=== PATIENT | female | born 1960 | race Caucasian/White ===

== ENCOUNTER → 2016-08-13 | Outpatient (CLI) | payer OTHER ==
[~2016-08-13] MED LIST: ALEN70TA2 PO; CHOL100027 PO; CONJ0.453 PO; MULTTAB58 PO; OXYC-57 PO; VIACTIV CALCIUM PO
--- NOTE | 2016-08-13 15:58 | MAMMOGRAPHY REPORT ---
BILATERAL DIGITAL SCREENING MAMMOGRAM TOMOSYNTHESIS WITH CAD: 08/13/2016 CLINICAL HISTORY: Routine screening. Patient has no complaints. TECHNIQUE: Breast tomosynthesis in addition to standard 2D mammography was performed. Current study was also evaluated with a Computer Aided Detection (CAD) system. COMPARISON: Comparison is made to exams dated: 09/12/2014 mammogram, 09/05/2013 mammogram, 08/30/2012 mammogram, 08/25/2011 mammogram, 08/20/2010 mammogram, and 08/13/2009 mammogram - [facility] enter. BREAST COMPOSITION: There are scattered areas of fibroglandular density in both breasts. FINDINGS: The parenchymal pattern is similar to prior exams. No suspicious mass, architectural dist ortion or cluster of suspicious microcalcifications is seen. IMPRESSION: ACR BI-RADS CATEGORY 1: NEGATIVE There is no mammographic evidence of malignancy. A 1 year screening mammogram is recommended. The p atient will receive written notification of the results. Approximately 10% of breast cancers are not detected with mammography. A negative mammographic repor t should not delay biopsy if a clinically suggestive mass is present. Alissa Kwon M.D. ay/:08/13/2016 13:42:10 [place] Laborer: Lucille SANTANA(Rudi)(Andrew), [facility] letter sent: Normal 1/2 BI-RADS Code: ACR BI-RADS Category 1: Negative
== END | disposition home or self-care (01) ==
LOC: C.MAMM 08:58
PROVIDERS: ATTEND Obstetrics & Gynecology
DX: Z12.31 Encounter for screening mammogram for malignant neoplasm of breast (principal)

== ENCOUNTER → 2016-11-17 | Outpatient (CLI) | payer OTHER ==
[~2016-11-17] MED LIST changes: -OXYC-57 PO
== END | disposition home or self-care (01) ==
LOC: C.PAPS 10:29
PROVIDERS: ATTEND Obstetrics & Gynecology
DX: Z12.4 Encounter for screening for malignant neoplasm of cervix (principal)

== ENCOUNTER → 2017-05-27 | Outpatient (CLI) | payer OTHER | END | disposition home or self-care (01) | LOC: C.RDSM 15:05 | PROVIDERS: ATTEND Physical Medicine & Rehabilitation Sports Medicine | DX: M65.30 Trigger finger, unspecified finger (principal) ==

== ENCOUNTER → 2017-06-18 | Outpatient (CLI) | payer OTHER | END | disposition home or self-care (01) | LOC: C.RDSM 13:48 | PROVIDERS: ATTEND Orthopaedic Surgery | DX: M79.641 Pain in right hand (principal); M79.642 Pain in left hand; M79.645 Pain in left finger(s) ==

== ENCOUNTER → 2017-10-26 | Outpatient (CLI) | payer OTHER ==
--- NOTE | 2017-10-26 15:26 | MAMMOGRAPHY REPORT ---
BILATERAL DIGITAL SCREENING MAMMOGRAM TOMOSYNTHESIS WITH CAD: 10/26/2017 CLINICAL HISTORY: Routine screening. Patient has no complaints. TECHNIQUE: Breast tomosynthesis in addition to standard 2D mammography was performed. Current study was also evaluated with a Computer Aided Detection (CAD) system. COMPARISON: Comparison is made to exams dated: 08/13/2016 mammogram, 09/12/2014 mammogram, 02/23/2014 ma mmogram, 09/05/2013 mammogram, 08/30/2012 mammogram, and 08/25/2011 mammogram - [facility] nter. BREAST COMPOSITION: There are scattered areas of fibroglandular density in both breasts. FINDINGS: The parenchymal pattern is unchanged. No developing mass, architectural distortion or clus ter of suspicious microcalcifications is seen in either breast. IMPRESSION: ACR BI-RADS CATEGORY 2: BENIGN There is no mammographic evidence of malignancy. A 1 year screening mammogram is recommended. The pa tient will receive written notification of the results. Approximately 10% of breast cancers are not detected with mammography. A negative mammographic report should not delay biopsy if a clinically suggestive mass is present. Alissa Kwon M.D. ay/:10/26/2017 15:16:53 Mortgage Loan Officer: Leigha SANTANA(Rudi)(Andrew)([place]), [facility] letter sent: Normal 1/2 BI-RADS Code: ACR BI-RADS Category 2: Benign
== END | disposition home or self-care (01) ==
LOC: C.MAMM 14:42
PROVIDERS: ATTEND Obstetrics & Gynecology
DX: Z12.31 Encounter for screening mammogram for malignant neoplasm of breast (principal)

== ENCOUNTER 2023-02-17 10:50 | Observation (INO) ==
--- NOTE | 2023-01-12 10:46 | PAT Medication Instructions ---
Medication Instructions Date of Service January 12, 2023 Home Medications Medication Instructions Recorded Deborah Burr #1 ea 12/11/22 calcium carbonate 250 mg-vitamin D3 3.125 mcg (125 unit) tablet 1 tab PO BID multivitamin 1 cap PO QAM borage seed oil 1,200 mg capsule 1,300 mg PO DAILY amino acids (Amino Acid capsule) 4 cap PO QAM krill oil 500 mg capsule 500 mg PO QAM turmeric root extract 500 mg capsule (Curcuplex-95) 500 mg PO QAM STOP taking 2 weeks before surgery (or as soon as possible if surgery is within 2 weeks) borage seed oil 1,200 mg capsule 1,300 mg PO DAILY amino acids (Amino Acid capsule) 4 cap PO QAM krill oil 500 mg capsule 500 mg PO QAM turmeric root extract 500 mg capsule (Curcuplex-95) 500 mg PO QAM DO NOT take the morning of surgery multivitamin 1 cap PO QAM calcium carbonate 250 mg-vitamin D3 3.125 mcg (125 unit) tablet 1 tab PO BID Take evening before surgery calcium carbonate 250 mg-vitamin D3 3.125 mcg (125 unit) tablet 1 tab PO BID Other Notes NOTHING TO EAT OR DRINK AFTER MIDNIGHT. If you have any questions please call us at [phone] or [phone] or [phone] or [phone]
--- NOTE | 2023-01-19 14:49 | Anesthesiology Consultation ---
Date of Service January 19, 2023 Assessment & Plan (1) Encounter for pre-operative examination: - awaiting updated echocardiogram. - Cardiac murmur: diastolic on exam, pt reports echo completed "many yrs ago" demonstrated mild regurgitation, unsure of which valve and she believes record is no longer available. Case discussed with Dr. Hicks in detail and he advised updating echocardiogram prior to surgery given plan for neuraxial anesthesia. Pt made aware, denied questions or concerns. Chart Review Chart Review: Pending: Refer to Additional Notes / Consult section and Patient seen in Pre Admission Testing Teaching & Discussion Pre-Anesthesia Teaching/Discussion Notes: Instructed NPO after midnight before surgery, except medications with 15 cc of water. Medication instructions provided according to the PAT guidelines. History Surgery Operation Date: 02/17/23 13:00 Proposed Procedures p Right Total Knee Arthroplasty - Jatinder Agee MD Height/Weight Height: 5 ft 6 in Weight: 79.6 kg Allergies Allergy/AdvReac Type Severity Reaction Status Date / Time No Known Allergies Allergy Unknown Verified 01/12/23 08:06 Medications Home Medications Medication Instructions Recorded Confirmed Last Taken calcium carbonate 250 mg-vitamin 1 tab PO BID 02/22/19 01/12/23 05/16/19 D3 3.125 mcg (125 unit) tablet multivitamin 1 cap PO QAM 02/22/19 01/12/23 05/16/19 borage seed oil 1,200 mg capsule 1,300 mg PO DAILY 10/02/22 01/12/23 Unknown Wheeled Walker #1 ea 12/11/22 12/11/22 Unknown amino acids (Amino Acid capsule) 4 cap PO QAM 01/12/23 01/12/23 Unknown krill oil 500 mg capsule 500 mg PO QAM 01/12/23 01/12/23 Unknown turmeric root extract 500 mg 500 mg PO QAM 01/12/23 01/12/23 Unknown capsule (Curcuplex-95) Additional Notes: Pt advised that surgeon advised supplements can be continued throughout brianna- operative recommendations. Past Medical History Medical History (Updated 01/19/23 @ 15:12 by Michelle Malave PA-C) Cardiac murmur YRS AGO; f/u PCP GERD (gastroesophageal reflux disease) rare with spicy foods, stable per pt Patient denies h/o stroke, seizures, heart attack, heart failure, DM, HTN, blood clots or blood transfusions. Exercise / Class Metabolic Activity II 4-5 Yardwork/Stairs/Walk up hill (denies chest discomfort or shortness of breath with 1 FOS, patient swims daily) Past Surgical History Surgical History H/O section History of colonoscopy History of dental surgery History of endometrial ablation Hx of thumb surgery BILAT > JOINTS REPLACED; carpal tunnel sx done one wrist and trigger finger release on opposite hand>all done during thumb surgery Nausea and vomiting after administration of anesthetic agent Status post blepharoplasty of both eyes (05/17/19) 4 lid Past Anesthesia History No Hx of Anesthesia Complications and No Family Hx of Anesthesia Complications History of PONV No Hx of Motion Sickness and History of PONV (denies needing scop patch, states does well with IV pre-medication) Social History Smoking Status: Never smoker Do You Dip or Chew Tobacco: No Hx Alcohol Use: Yes Alcohol type: wine alcohol intake frequency: a few times a week Hx Substance Use: No substance use type: does not use Review of Systems Patient denies chest pain, shortness of breath, dyspnea on exertion, snoring, witnessed apneas, fever, chills, cough, wheezing, or palpitations. Physical Exam Vital Signs Vitals BP 140/87 P 75 TEMP 98.6 SP02 97% on RA RESP 17 Physical Patient resting comfortably in chair in NAD, alert and oriented, responding appropriately throughout visit Full cervical extension range of motion without pain TMD 3.5 finger breadths Mallampati Score 3 Dentition: right front upper implant, denies chipped or loose teeth, caps/crowns, or bridges Lungs: normal respiratory effort. Good air movement, clear throughout to auscultation, no adventitious breath sounds Cardiac: regular rate and rhythm, 2/6 diastolic murmur Carotid arteries: negative bruit bilat Lab Results Anesthesia Preop Results Results Anesthesia Widget: WBC 5.47 K/ul (4.8-10.8) 01/19/23 Hgb 14.4 g/dl (12.0-16.0) 01/19/23 Hct 42.1 % (37.0-47.0) 01/19/23 Plt 296 K/uL (130-400) 01/19/23 Na 138 mmol/L (136-145) 01/19/23 K 3.8 mmol/L (3.5-5.1) 01/19/23 Cl 104 mmol/L (98-107) 01/19/23 CO2 27 mmol/L (21-32) 01/19/23 BUN 17 mg/dl (6-23) 01/19/23 Creat 0.84 mg/dl (0.6-1.2) 01/19/23 Glucose Level 95 mg/dl (70-99(Fasting)) 01/19/23 PT 11.0 Seconds (9.0-12.0) 01/19/23 PTT 26.5 Seconds (21.0-31.0) 01/19/23 INR 1.0 (0.9-1.1) 01/19/23 Blood Type AB Positive 01/19/23 Antibody Screen NEGATIVE 01/19/23 Testing Electrocardiogram Date: 01/20/23 NSR, rate 73 bpm Chest X-Ray Date: 01/20/23 No acute chest disease
--- NOTE | 2023-02-14 10:08 | History & Physical Report ---
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 She failed conservative measures. She like to have her right knee fixed. Plan: Orgran taken to the operating of the right total knee replacement for the risk meant this procedure explained the patient include but not limited to DVT PE infection neurological and vascular bleeding palm pain limb range of motion stiffness fairly of symptoms incomplete relief of symptoms need for further surgery in the future. Patient understands and desires to proceed. Informed consent is obtained. She is hoping to stay in the hospital overnight. Will do therapy in the morning and hopefully discharge date postop day 1 if she is doing well. (2) Venous insufficiency: History of Present Illness Chief Complaint: . Bilateral knee pain and discomfort right side greater than left. Primary Care Provider: Arianna Almeida MD . Patient is a 62-year-old female who presents for follow-up and surgical treatment of her knees. 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 She had a long history of knee problems. She been treated conservatively which is become less successful over time. The last shot that helped her for about a week and a half and that is about it. She is resorted to swimming for exercise as she cannot walk long distances. She has pain with any type of prolonged standing. She now elected proceed with surgical management. Once again, the right knee is bothering him more than the left. Allergies Allergy/AdvReac Type Severity Reaction Status Date / Time No Known Allergies Allergy Unknown Verified 01/12/23 08:06 Home Medications Medication Instructions Recorded Confirmed Type calcium carbonate 250 mg-vitamin 1 tab PO BID 02/22/19 01/12/23 History D3 3.125 mcg (125 unit) tablet multivitamin 1 cap PO QAM 02/22/19 01/12/23 History borage seed oil 1,200 mg capsule 1,300 mg PO DAILY 10/02/22 01/12/23 History Wheeled Walker #1 ea 12/11/22 12/11/22 Rx amino acids (Amino Acid capsule) 4 cap PO QAM 01/12/23 01/12/23 History krill oil 500 mg capsule 500 mg PO QAM 01/12/23 01/12/23 History turmeric root extract 500 mg 500 mg PO QAM 01/12/23 01/12/23 History capsule (Curcuplex-95) Past Med/Surg History Medical History Cardiac murmur YRS AGO; f/u PCP GERD (gastroesophageal reflux disease) rare with spicy foods, stable per pt Surgical History H/O section History of colonoscopy History of dental surgery History of endometrial ablation Hx of thumb surgery BILAT > JOINTS REPLACED; carpal tunnel sx done one wrist and trigger finger release on opposite hand>all done during thumb surgery Nausea and vomiting after administration of anesthetic agent Status post blepharoplasty of both eyes (05/17/19) 4 lid Social History Smoking Status: Never smoker Second Hand Exposure: No; Do You Dip or Chew Tobacco: No; Tobacco Cessation Education Requested by Patient: No Hx Alcohol Use: Yes Alcohol type: wine Hx Substance Use: No Preferred Language: Occitan Communication Ability: Effective Splicing Machine Operator Required: No Beliefs That Will Affect Care: None Current Living Situation: Spouse and Family current occupational status: employed Other Information That Helps Us Care for You: No Feels Safe at Home: Yes Safety Concerns: Feels Safe At This Time Assistive Devices: None Review of Systems All systems reviewed & are unremarkable except as noted in HPI & below. Physical Exam . Physical examination of the knees reveal a patient who ambulates independently. She got varus alignment to both knees. That when she weightbears she does have a bit of varus thrust. She got bony perjury medially. Small knee effusion. Range of motion is pretty symmetric with about 510 degrees of flexion contractu re in both knees and bends to about 105 to 110 degrees. No pain with hip motion on either side. Negative straight leg raise. Constitutional WD/WN, vitals as above Respiratory normal respiratory effort, lungs clear to auscultation Cardiovascular RRR, no murmur, no edema Gastrointestinal (Abdomen) normal bowel sounds, soft, nontender, no hepatosplenomegaly Results & Data Results & Data Laboratory Results . Diagnostic Findings . X-rays of both knees reveal advanced bilateral knee DJD. That she has complete loss of the medial joint space. Is got osteophytes in the medial compartment primarily. She had subchondral sclerosis bilaterally. PG Care Time/CCT Total # of Minutes Spent Total Time Spent with Patient: Total time spent is greater than 50% in coordination of care (as documented) at patient's floor/unit and/or counseling patient: Coding Level of Care Code None Diagnoses Degenerative arthritis of knee, bilateral M17.0 Venous insufficiency I87.2
[~2023-02-17 10:50] MED LIST changes: +ACETAMINOPHEN 500 MG TAB PO SCH; -ALEN70TA2 PO; +BUPIVACAINE 0.25% PF 30 ML VIAL ONE; +BUPIVACAINE 0.5 % 5 MG/1 ML PF 10ML VIAL ONE; +BUPIVACAINE LIPOSOME/PF 266 MG, BUPIVACAINE/EPINEPHRINE 50 ML, SODIUM CHLORIDE 0.9% PF ... INFIL SCH; -CHOL100027 PO; -CONJ0.453 PO; +CeleBREX 200 MG CAP PO SCH; +FAMOTIDINE 20 MG TAB PO SCH; +LR 15ML/HR IV SCH; +LR 60ML/HR IV SCH; +METOCLOPRAMIDE HCL 10 MG TABLET PO SCH; -MULTTAB58 PO; +Scopolamine 1 MG TDSY TD SCH; +TRANEXAMIC ACID 1,000 MG **IV Intra-op IV SCH; -VIACTIV CALCIUM PO; +ceFAZolin 2000MG 2,000 MG/15 ML SYR IV SCH; +dexAMETHasone**PF** 10 MG/ML VIAL IV SCH
--- NOTE | 2023-02-17 11:17 | History & Physical Bridge Note ---
Date of Service February 17, 2023 History & Physical Bridge Note I have examined the patient, reviewed the History & Physical and in the interval since the performance of the History & Physical I have noted the following changes of clinical significance: no changes noted
[2023-02-17] MEDS ORDERED: ONDANSETRON INJ 2 MG/ML 2 ML VIAL IV PRN ×2 (12:07→16:30)
[2023-02-17] MEDS ORDERED: ATROPINE SULFATE 0.1 MG/ML 10ML SYR IV PRN (12:07)
[2023-02-17] MEDS ORDERED: fentaNYL citrate PF 100 MCG/2 ML VIAL IV PRN (12:07)
[2023-02-17] MEDS ORDERED: ePHEDrine sulfate 50 MG/ML AMP IV PRN (12:07)
[2023-02-17] MEDS ORDERED: LIDOCAINE 2% 2 ML VIAL/AMP(20MG/ML) INFIL ONE (12:08)
[2023-02-17] MEDS ORDERED: PROPOFOL IV EMULSION 10 MG/ML 20 ML VIAL IV ONE (12:08)
[2023-02-17] MEDS ORDERED: ONDANSETRON INJ 2 MG/ML 2 ML VIAL ONE (12:08)
[2023-02-17] MEDS ORDERED: GLYCOPYRROLATE 0.2 MG/ML VIAL ONE (12:08)
[2023-02-17] MEDS ORDERED: MIDAZOLAM HCL 1 MG/ML 2ML VIAL ONE (12:08)
[2023-02-17] MEDS ORDERED: SODIUM CHLORIDE 0.9% PF 50 ML VIAL ONE (12:22)
[2023-02-17] MEDS ORDERED: BUPIVACAINE LIPOSOME 1.3% 266 MG/20 ML VIAL ONE (12:22)
[2023-02-17] MEDS ORDERED: BUPIVACAINE/EPINEPHRINE 0.25% 1:200,000 30 ML VIAL ONE (12:22)
[2023-02-17] MEDS ORDERED: KETAMINE 50 MG/5 ML SYRINGE ONE (13:11)
--- NOTE | 2023-02-17 14:57 | Operative Report ---
PG Post Operative Report Pre & Post Diagnosis Operation Date: 02/17/23 12:30 Pre-Op Diagnosis: Right Knee Degenerative Joint Disease Post-Op Diagnosis: Right Knee Degenerative Joint Disease I identified the patient and participated in the time-out.: Yes Procedure Operation Date: 02/17/23 12:30 Actual Procedures p Right Total Knee Arthroplasty(Right) - Jatinder Agee MD Surgeon Jatinder Agee MD Technical Sales Manager Patrick Azar PA-C Estimated Blood Loss 50 Findings Consistent with Post-Op Diagnosis Operative findings were advanced right knee DJD. She had extensive grade 4 [id number] disease most severe in the medial compartment. Osteophytes primarily medially. She had a fixed varus deformity of the knee with a moderate joint effusion. Specimens Right knee sent for pathology Anesthesia Type Spinal MAC Complications none Disposition Accompanied Patient To Recovery: No Indications Patient is a 62-year-old female said a long history of bilateral knee pain discomfort right side greater than left. She been through extensive conservative treatment over the years which became less successful. X-rays show advanced bilateral knee DJD. The right side was bothering more than the left. She elected proceed with right total knee arthroplasty. Description of Procedure Operative implants consist of: 1. Biomet Vanguard size 70 right posterior stabilized femoral component. 2. Biomet size 71 tibial tray. 3. 10 mm posterior stabilized polyethylene insert. 4. 31 x 8 all poly patella. The patient was taken to the operating, identified, placed on the operating table supine position but all contact areas were appropriately padded. IV antibiotics arrived by the anesthesia team. A spinal anesthetic and abductor canal block had been provided in the holding area. Velasquez catheter was placed in sterile fashion. Right thigh tent was then placed in the right lower extremities then prepped and draped in usual sterile fashion. The right leg was elevated exsanguinated with use of an Esmarch and the turn was placed at 300 mmHg. An anterior approach to the right knee was then performed to longitudinal incision centered over the patella. Sharp dissection was carried through subcutaneous tissue down the extensor mechanism. A medial parapatellar arthrotomy incision was made. Some subperiosteal dissection was carried out medially. The fat pad was dissected from Neath patella tendon. The lateral patellofemoral ligament was released. Patella subluxated laterally and the knee was flexed. The osteophytes taken on distal femur. The ACL and PCL were then released from distal femur and the tibia subluxated anteriorly. External tibial alignment jig was then placed in the interface the tibia and adjusted 14 mm medially. Proximal tibial cut was made to move out a millimeter or 2 of bone from most deficient aspect medial tibial plateau. Tibia sized to a size 71. Attention drawn the femur. The distal femur was entered with a sharp drill. Intramedullary canal was suction. Right 5 degree valgus cutting guide was placed. Distal femoral cutting block was pinned in place. Distal femoral cut was made to take an additional 3 mm of bone off distal femur. The femur was then sized to a size 70. The AP cutting block was pinned parallel to the epicondylar axis which was 3 degrees of external rotation. Anterior cut, anterior chamfer, posterior cut, posterior chamfer cuts were made. The box cutting guide was placed in just slight lateral box cut was made. The knee was flexed. The remnants of the medial and lateral menisci were excised. The osteophytes taken off the posterior aspect of femur. A trial femoral component was placed. The tibial tray was pinned in maximum external rotation and the drill and stem punch were used to create defect in proximal tibia for the tibial tray. The knee was then trialed and the 10 mm insert fit most appropriately. Attention drawn the patella. The patella was cleaned of all soft tissues. Patella thickness measured 23 mm in thickness was cut down to 15. Was sized to a size 31 patella. The lug holes were drilled for 31 patella. The lateral osteophytes removed. Patella button was placed. Knee was taken through range of motion patella tracked nicely with no thumbs test. Attention drawn to placing the permanent components. Nupathe all trial components were removed. Bone plug was placed in the distal femur limit blood loss. Double batch Palacos G cement was mixed. Biomet Vanguard size 70 right posterior stabilized femoral component, size 71 tibial tray, a 10 mm posterior stabilized polyethylene insert, and a 31 x 8 all Paller patella then cemented in place. The knee was brought out into full extension till cement hardened. Final cement check was then performed. The pericapsular tissues were injected with total of 100 cc of combination of 20 cc of Exparel, 30 cc normal saline, 50 cc of quarter percent Marcaine with epinephrine. Patient did receive 1 g tranexamic acid. The tourniquet was then let down for final tourniquet time 53 minutes. Hemostasis assured use electrocautery. The wounds once again irrigated. The extensor mechanism then closed with c ombination 1 PDS suture #1 Vicryl suture in a [id number] fashion. Extensor mechanism checked found to be intact the subcutaneous tissues then closed with 2 Dexon suture in buried erupted fashion skin was closed skin francisca. Leg was then cleaned and dried and sterile dressed with Xeroform, 4 fours, sterile cast padding, Bjorn bandage were applied. Patient then transferred to the [facility] in stable condition. Patient tolerated procedure well and there were no complications. Patrick Azar, my physician materials assistant, was present for the entire procedure. His assistance was essential and required for appropriate patient positioning, prepping and draping, surgical exposure, performing the technical details of the operation, placement the implants, closure of the wound, and placement of the sterile bandage. I attest to the content of the Intraoperative Record and any orders documented therein. Any exceptions are noted below.
--- NOTE | 2023-02-17 15:34 | XRay Report ---
XR knee RT 1 or 2V routine HISTORY: 62 years-old Female Surgical Post Op right knee arthroplasty COMPARISON: 12/11/2022 TECHNIQUE: 2 views of the right knee FINDINGS: Total joint arthroplasty with patellar resurfacing. Anterior midline skin francisca are present along w ith expected postoperative soft tissue swelling with deep tissue air. No acute fracture, dislocation or unexpected opaque foreign body. IMPRESSION: Total joint arthroplasty with expected postoperative changes. ACT 112: Negative or not required by law. The above report was generated using voice recognition software. It may contain grammatical, syntax o r spelling errors. Electronically signed by: Hema Og M.D. 02/17/2023 3:32 PM
--- NOTE | 2023-02-17 16:09 | Anesthesiology Progress Note ---
Date of Service February 17, 2023 Anesthesia Post Procedure Vital Signs Vital Signs: Temp Pulse Pulse Resp BP Pulse Ox O2 Del Method 02/17/23 16:00 75 20 121/79 98 Room Air 02/17/23 15:50 77 15 121/75 99 Room Air 02/17/23 15:40 36.4 C L 69 16 121/70 96 Room Air 02/17/23 15:30 80 13 118/68 100 Room Air 02/17/23 15:20 75 18 109/69 93 Room Air 02/17/23 15:00 82 17 108/60 95 Room Air 02/17/23 15:10 79 18 106/64 96 Room Air 02/17/23 14:54 36.6 C 81 19 97/49 L 95 Room Air 02/17/23 11:21 36.8 C 75 20 131/80 98 Room Air Transfer of Care Handoff Completed per policy Notes Mental Status: alert / awake / arousable Patient Amnestic to Procedure: Yes Nausea / Vomiting: adequately controlled Pain: adequately controlled Airway Patency, RR, SpO2: stable & adequate BP & HR: stable & adequate Hydration State: stable & adequate Neuraxial Anesthesia: was administered and sensory block is resolving Anesthetic Complications: no major complications apparent and Pt Satisfied with anesthetic care
[2023-02-17] MEDS ORDERED: ALUMINUM/MAGNESIUM SUSP 30 ML UDC PO PRN (16:30)
[2023-02-17] MEDS ORDERED: METOCLOPRAMIDE HCL INJ 5 MG/ML 2 ML VIAL IV PRN (16:30)
[2023-02-17] MEDS ORDERED: bisacodyL 10 MG SUPP PR PRN (16:30)
[2023-02-17] MEDS ORDERED: NALOXONE HCL 0.4 MG/1 ML VIAL/CARP IV PRN (16:30)
[2023-02-17] MEDS ORDERED: SODIUM CHLORIDE 0.9% 1,000 ML IV SCH (16:30)
[2023-02-17] MEDS ORDERED: diphenhydrAMINE Capsule 25 MG CAP PO PRN (16:30)
[2023-02-17] MEDS ORDERED: MAGNESIUM HYDROXIDE SUSP 30 ML UDC PO PRN (16:30)
[2023-02-17] MEDS: Scopolamine CHECK PATCH PLACEMENT SCH ×2 (17:12→23:40)
[2023-02-17] MEDS: ASCORBIC ACID 500 MG TAB PO SCH (17:12)
[2023-02-17] MEDS: KETOROLAC 30 MG/ML VIAL IV SCH ×2 (17:13→23:40)
[2023-02-17] MEDS: oxyCODONE HCL IR 5 MG TAB (IMMEDIATE RELEASE) PO PRN (19:51)
[2023-02-17] MEDS: ACETAMINOPHEN 500 MG TAB PO SCH (19:52)
[2023-02-17] MEDS ORDERED: SENNA 8.6 MG TAB PO SCH ×2 (21:00)
[2023-02-17] MEDS ORDERED: TRANEXAMIC ACID / 0.7% NACL 1,000 MG/100 ML BAG IV SCH (21:00)
[2023-02-17] MEDS: CALCIUM 600MG + VIT D 400 IU TAB PO SCH (21:16)
[2023-02-17] MEDS: ASPIRIN 81 MG ECTAB PO SCH (21:16)
[2023-02-17] MEDS: DOCUSATE SODIUM 100 MG CAP PO SCH (21:17)
[2023-02-17] MEDS: ceFAZolin 1000MG 1,000 MG/7.5 ML SYR IV SCH (21:57)
[2023-02-17] MEDS: HYDROmorphone INJ 0.5 MG/0.5 ML SYR IV PRN (23:43)
[2023-02-18] MEDS: oxyCODONE HCL IR 5 MG TAB (IMMEDIATE RELEASE) PO PRN ×2 (03:51→11:32)
[2023-02-18] MEDS: ceFAZolin 1000MG 1,000 MG/7.5 ML SYR IV SCH (06:17)
[2023-02-18] MEDS: KETOROLAC 30 MG/ML VIAL IV SCH (06:22)
[2023-02-18 07:14] LABS: Hematocrit (blood only) 36.3 % (37.0-47.0); Hemoglobin 12.3 g/dl (12.0-16.0); Mean Corpuscular Hemoglobin 30.6 pg (25.0-34.0); Mean Corpuscular Hgb Conc 33.9 g/dL (32.0-36.0); Mean Corpuscular Volume 90.3 fL (80.0-100.0); Mean Platelet Volume 9.9 fL (9.4-12.4); Platelet Count 252 K/uL (130-400); RDW Coefficient of Variation 12.6 % (11.5-14.5); RDW Standard Deviation 41.5 fL (36.4-46.3); Red Blood Count 4.02 M/uL (4.20-5.40); White Blood Count 13.81 K/ul (4.8-10.8)
[2023-02-18] MEDS: CALCIUM 600MG + VIT D 400 IU TAB PO SCH (07:36)
[2023-02-18] MEDS: ACETAMINOPHEN 500 MG TAB PO SCH (07:36)
[2023-02-18] MEDS: Scopolamine CHECK PATCH PLACEMENT SCH (07:36)
[2023-02-18] MEDS: ASCORBIC ACID 500 MG TAB PO SCH (07:36)
[2023-02-18] MEDS: DOCUSATE SODIUM 100 MG CAP PO SCH (07:36)
[2023-02-18 07:38] LABS: BUN Creatinine Ratio 14.3 (10-20); Creatinine Clr Calc Pharmacy 67.1 ml/min; Est GFR (African American) 77.8 ml/min; Est GFR (Non-African American) 67.1 ml/min; Potassium 4.3 mmol/L (3.5-5.1)
[2023-02-18] MEDS ORDERED: dexAMETHasone 10 MG in SYRINGE 0 ML IV SCH (08:00)
[2023-02-18] MEDS: HYDROmorphone INJ 0.5 MG/0.5 ML SYR IV PRN (08:37)
[2023-02-18] MEDS ORDERED: [UNRECOGNIZED DRUG - OTHER] PO SCH (09:00)
[2023-02-18] MEDS ORDERED: NON-FORMULARY MEDICATION (Amino Acids [Amino Acid] Capsule) PO SCH (09:00)
[2023-02-18] MEDS ORDERED: NON-FORMULARY MEDICATION (Multivitamin capsule) PO SCH (09:00)
[2023-02-18] MEDS ORDERED: MULTIVITAMIN TAB PO SCH (09:00)
[2023-02-18] MEDS ORDERED: TURMERIC ROOT EXTRACT 500 MG PO SCH (09:00)
[2023-02-18] MEDS: ASPIRIN 81 MG ECTAB PO SCH (09:51)
--- NOTE | 2023-02-18 10:49 | Orthopedic Progress Note ---
Date of Service February 18, 2023 Assessment & Plan (1) Status post right knee replacement: 62-year-old female postop day 1 from right knee replacement. She is doing quite well. Pain is controlled. She is neurologically intact. Open to go home. Plan: 1. DVT prophylaxis including thigh-high teds, SCDs, aspirin twice a day. 2. PT OT. Weight-bear as tolerated. Right total knee protocol. 3. Pain control doing pretty well with current pain regimen. 4. Disposition plan is to discharge her to home with home health today Subjective . 62-year-old female postop day 1 from a right knee replacement. She is doing pretty well. Had a pretty good night. Pain is controlled. Therapy went well. No chest pain or shortness of breath. Not feeling dizzy or lightheaded. Hoping to go home today. Review of Systems All systems reviewed & are unremarkable except as noted in HPI & below. Physical Exam . Physical examination was a pleasant middle-age female. Sitting up in her bedside chair talking to nurse. Examination the right leg reveals dressing clean dry and intact. She can dorsiflex and plantarflex her foot appropriately. She can do a straight leg raise but takes quite a bit of effort. She is neurologically intact. Respiratory normal respiratory effort, lungs clear to auscultation Cardiovascular RRR, no murmur, no edema Gastrointestinal (Abdomen) normal bowel sounds, soft, nontender, no hepatosplenomegaly Results & Data Results & Data Laboratory Results . Hemoglobin is 12.3. Hematocrit is 36.3. Electrolytes are stable. Diagnostic Findings . PG Care Time/CCT Total # of Minutes Spent Total Time Spent with Patient: Total time spent is greater than 50% in coordination of care (as documented) at patient's floor/unit and/or counseling patient: Coding Level of Care Code 61081 Post Operative Follow-Up Diagnoses Status post right knee replacement Z96.651
== END 2023-02-18 11:58 | disposition home health service (06) ==
LOC: ASU 10:50 → 3E 10:50

== ENCOUNTER 2024-03-22 08:00 | Observation (INO) ==
--- NOTE | 2024-02-16 10:35 | PAT Medication Instructions ---
Medication Instructions Date of Service February 16, 2024 Home Medications calcium carbonate 250 mg-vitamin D3 3.125 mcg (125 unit) tablet 1 tab PO BID multivitamin 1 cap PO QAM krill oil 500 mg capsule 500 mg PO QAM turmeric root extract 500 mg capsule (Curcuplex-95) 500 mg PO QAM Vitamin C 1 tab PO DAILY STOP taking 2 weeks before surgery (or as soon as possible if surgery is within 2 weeks) krill oil 500 mg capsule 500 mg PO QAM turmeric root extract 500 mg capsule (Curcuplex-95) 500 mg PO QAM DO NOT take the morning of surgery calcium carbonate 250 mg-vitamin D3 3.125 mcg (125 unit) tablet 1 tab PO BID multivitamin 1 cap PO QAM Vitamin C 1 tab PO DAILY Take evening before surgery calcium carbonate 250 mg-vitamin D3 3.125 mcg (125 unit) tablet 1 tab PO BID Other Notes NOTHING TO EAT OR DRINK AFTER MIDNIGHT. If you have any questions please call us at [phone] or [phone] or [phone] or [phone]
--- NOTE | 2024-02-23 14:55 | Anesthesiology Consultation ---
Date of Service February 23, 2024 Assessment & Plan (1) Encounter for pre-operative examination: - patient notes extended effect with previous spinal block lasting up to 6-7 hours after admission and would still like neuraxial anesthesia rather than general anesthesia. - Outpatient joint assessment: Patient is currently scheduled for inpatient pathway. If re-evaluated and patient/surgeon requests outpatient pathway, patient is not ideal candidate for outpatient joint program from anesthesia standpoint. Chart Review Chart Review: Acceptable Risk for Surgery and Patient seen in Pre Admission Testing Teaching & Discussion Pre-Anesthesia Teaching/Discussion Notes: Instructed NPO after midnight before surgery, except medications with 15 cc of water. Medication instructions pro vided according to the PAT guidelines. History Surgery Operation Date: 03/22/24 10:40 Proposed Procedures p Left Total Knee Arthroplasty - Jatinder Agee MD Height/Weight Height: 5 ft 6 in Weight: 78.3 kg Allergies Allergy/AdvReac Type Severity Reaction Status Date / Time No Known Allergies Allergy Unknown Verified 02/11/24 08:22 Medications Home Medications Medication Instructions Recorded Confirmed Last Taken calcium carbonate 250 mg-vitamin 1 tab PO BID 02/22/19 02/11/24 02/16/23 07:00 D3 3.125 mcg (125 unit) tablet multivitamin 1 cap PO QAM 02/22/19 02/11/24 02/16/23 07:00 krill oil 500 mg capsule 500 mg PO QAM 01/12/23 02/11/24 02/03/23 turmeric root extract 500 mg 500 mg PO QAM 01/12/23 02/11/24 02/03/23 capsule (Curcuplex-95) Vitamin C 1 tab PO DAILY 02/11/24 02/11/24 Unknown Past Medical History Medical History Cardiac murmur slight, f/u Dr Martinez GERD (gastroesophageal reflux disease) rare with spicy foods, stable per pt Venous insufficiency Patient denies h/o stroke, seizures, heart attack, heart failure, DM, HTN, blood clots/DVTs or blood transfusions. Exercise / Class Metabolic Activity II 4-5 Yardwork/Stairs/Walk up hill (denies chest discomfort or shortness of breath with one flight of stairs) Past Surgical History Surgical History H/O section History of colonoscopy History of dental surgery History of endometrial ablation Hx of thumb surgery BILAT > JOINTS REPLACED; carpal tunnel sx done one wrist and trigger finger release on opposite hand>all done during thumb surgery Nausea and vomiting after administration of anesthetic agent Status post blepharoplasty of both eyes (05/17/19) 4 lid Status post right knee replacement Past Anesthesia History No Hx of Anesthesia Complications and No Family Hx of Anesthesia Complications History of PONV No Hx of Motion Sickness and History of PONV (does well with IV pre-dosing) Social History Smoking Status: Never smoker Do You Dip or Chew Tobacco: No Hx Alcohol Use: Yes Alcohol type: wine alcohol intake frequency: a few times a week Hx Substance Use: No substance use type: does not use Review of Systems Patient denies chest pain, shortness of breath, dyspnea on exertion, snoring, witnessed apneas, fever, chills, cough, wheezing, or palpitations. Physical Exam Vital Signs Vitals BP 133/81 P 73 TEMP 98.3 SP02 98% on RA RESP 18 Physical Patient resting comfortably in chair in no acute distress, alert and oriented, responding appropriately throughout visit Full cervical extension range of motion without pain TMD 3.5 finger breadths Mallampati Score 2 Dentition: intact, denies chipped or loose teeth, caps/crowns, implants or bridges Lungs: normal respiratory effort. Good air movement, clear throughout to auscultation, no adventitious breath sounds Cardiac: regular rate and rhythm, no murmurs noted Carotid arteries: negative bruit bilat Lab Results Anesthesia Preop Results Results Anesthesia Widget: WBC 5.18 K/ul (4.8-10.8) 02/23/24 Hgb 13.9 g/dl (12.0-16.0) 02/23/24 Hct 41.8 % (37.0-47.0) 02/23/24 Plt 279 K/uL (130-400) 02/23/24 Na 140 mmol/L (136-145) 02/23/24 K 3.9 mmol/L (3.5-5.1) 02/23/24 Cl 104 mmol/L (98-107) 02/23/24 CO2 27 mmol/L (21-32) 02/23/24 BUN 17 mg/dl (6-23) 02/23/24 Creat 0.82 mg/dl (0.6-1.2) 02/23/24 Glucose Level 85 mg/dl (70-99(Fasting)) 02/23/24 PT 10.7 Seconds (9.0-12.0) 02/23/24 PTT 26 Seconds (21-31) 02/23/24 INR 1.0 (0.9-1.1) 02/23/24 Blood Type AB Positive 02/23/24 Antibody Screen NEGATIVE 02/23/24 Testing Electrocardiogram Date: 02/23/24 NSR, rate 70 bpm Chest X-Ray Date: 02/23/24 No acute process. Echocardiogram Date: 01/30/23 EF 60-65% No LV regional wall motion abnormalities Mild cLVH Mild mitral valve prolapse with trace mitral regurgitation
--- NOTE | 2024-03-19 09:12 | History & Physical Report ---
Date of Service March 19, 2024 Assessment & Plan (1) Left knee DJD: 63-year-old female CHRISTIN from right knee replacement with left knee advanced DJD. She is failed conservative treatment. She is ready to proceed with left knee replacement. Plan: When taken the operating do a left total knee replacement the risks benefits of this procedure once again explained to the patient and she understands. Will plan on DVT prophylaxis including aspirin twice a day for 6 weeks. He is clary plan stay in the hospital overnight and likely discharge postoperative day 1. Of note the spinal anesthetic lasted for an extended period time last time. Will make anesthesia aware that. (2) Left knee pain: (3) Status post right knee replacement: History of Present Illness Chief Complaint: . Persistent left knee pain and discomfort. Primary Care Provider: Finesse Jose MD . 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 She is a little over a year out from right knee replacement doing pretty well. Still gets some swelling but really not much in the way of pain. She is pretty happy with the right knee. That she continues to be bothered by left knee pain discomfort. Fairly global pain. The more she is up and onto more it hurts. She limps more as the day goes on. It gives out intermittently. She is ready to have her right knee fixed. Allergies Allergy/AdvReac Type Severity Reaction Status Date / Time No Known Allergies Allergy Unknown Verified 02/11/24 08:22 Home Medications Medication Instructions Recorded Confirmed Type calcium 250 mg (as 1 tab PO BID 02/22/19 02/11/24 History carbonate)-vitamin D3 3.125 mcg (125 unit) tablet multivitamin 1 cap PO QAM 02/22/19 02/11/24 History krill oil 500 mg capsule 500 mg PO QAM 01/12/23 02/11/24 History turmeric root extract 500 mg 500 mg PO QAM 01/12/23 02/11/24 History capsule (Curcuplex-95) Vitamin C 1 tab PO DAILY 02/11/24 02/11/24 History Past Med/Surg History Problem List (Updated 03/19/24 @ 09:11 by Jatinder Agee MD) Left knee DJD Left knee pain Cubital tunnel syndrome on right Status post right knee replacement Degenerative arthritis of knee, bilateral Venous insufficiency Hot flashes Routine gynecological examination Thumb pain (Acute) Medical History Venous insufficiency GERD (gastroesophageal reflux disease) rare with spicy foods, stable per pt Cardiac murmur slight, f/u Dr Martinez Surgical History Status post right knee replacement History of dental surgery Status post blepharoplasty of both eyes (05/17/19) 4 lid Nausea and vomiting after administration of anesthetic agent Hx of thumb surgery BILAT > JOINTS REPLACED; carpal tunnel sx done one wrist and trigger finger release on opposite hand>all done during thumb surgery History of colonoscopy History of endometrial ablation H/O section Social History Smoking Status: Never smoker Second Hand Exposure: No; Do You Dip or Chew Tobacco: No; Hx Alcohol Use: Yes Alcohol type: wine Hx Substance Use: No Preferred Language: Telugu Communication Ability: Effective Training Program Assistant Required: No Beliefs That Will Affect Care: None Current Living Situation: Spouse and Family current occupational status: employed Feels Safe at Home: Yes Assistive Devices: None Review of Systems All systems reviewed & are unremarkable except as noted in HPI & below. Physical Exam . Physical examination of the knees reveal patient ambulates independently. Examination of the left knee reveals a varus alignment to her knee. She is tender over the medial joint line. She got some bony hypertrophy medially. Her range of motion about 5 degrees short full extension to 120 degrees of flexion. There is no instability. No particular pain with hip motion. Examination of the right knee reveals a well-healed incision. She got anatomically aligned knee. She does have a small joint effusion. Range of motion 0-1 20. Constitutional WD/WN, vitals as above Neck trachea midline, no thyromegaly Respiratory normal respiratory effort, lungs clear to auscultation Cardiovascular RRR, no murmur, no edema Gastrointestinal (Abdomen) normal bowel sounds, soft, nontender, no hepatosplenomegaly Results & Data Results & Data Laboratory Results . Diagnostic Findings . X-rays of both knees were reviewed. X-rays of the left knee reveal advanced medial compartment arthritis. She got complete loss of the medial joint space. She is got osteophytes medially and laterally. Got subchondral sclerosis. X-rays of the right knee reveal well-positioned total knee replacement. No signs of problems. PG Care Time/CCT Total # of Minutes Spent Total Time Spent with Patient: Total time spent is greater than 50% in coordination of care (as documented) at patient's floor/unit and/or counseling patient: Coding Level of Care Code None Diagnoses Left knee DJD M17.12 Left knee pain M25.562 Status post right knee replacement Z96.651
[~2024-03-22 08:00] MED LIST changes: -ACETAMINOPHEN 500 MG TAB PO SCH; -BUPIVACAINE 0.25% PF 30 ML VIAL ONE; -BUPIVACAINE 0.5 % 5 MG/1 ML PF 10ML VIAL ONE; -BUPIVACAINE LIPOSOME/PF 266 MG, BUPIVACAINE/EPINEPHRINE 50 ML, SODIUM CHLORIDE 0.9% PF ... INFIL SCH; -CeleBREX 200 MG CAP PO SCH; -FAMOTIDINE 20 MG TAB PO SCH; -LR 15ML/HR IV SCH; -LR 60ML/HR IV SCH; -METOCLOPRAMIDE HCL 10 MG TABLET PO SCH; +MIDAZOLAM HCL 1 MG/ML 2ML VIAL ONE; +ONDANSETRON INJ 2 MG/ML 2 ML VIAL ONE; +PROPOFOL IV EMULSION 10 MG/ML 20 ML VIAL IV ONE; +ROPIVACAINE 0.5% 5 MG/ML 30 ML VIAL ONE; -Scopolamine 1 MG TDSY TD SCH; -TRANEXAMIC ACID 1,000 MG **IV Intra-op IV SCH; -ceFAZolin 2000MG 2,000 MG/15 ML SYR IV SCH; -dexAMETHasone**PF** 10 MG/ML VIAL IV SCH; +fentaNYL citrate PF 100 MCG/2 ML VIAL ONE
[2024-03-22] MEDS: LR 60ML/HR IV SCH (08:34)
[2024-03-22] MEDS: LR 500ML BOLUS, THEN 15ML/HR IV SCH (08:37)
[2024-03-22] MEDS: ACETAMINOPHEN 500 MG TAB PO SCH ×2 (08:38→16:25)
[2024-03-22] MEDS: CeleBREX 200 MG CAP PO SCH (08:38)
[2024-03-22] MEDS: FAMOTIDINE 20 MG TAB PO SCH (08:38)
[2024-03-22] MEDS: METOCLOPRAMIDE HCL 10 MG TABLET PO SCH (08:38)
--- NOTE | 2024-03-22 08:47 | History & Physical Bridge Note ---
Date of Service March 22, 2024 History & Physical Bridge Note I have examined the patient, reviewed the History & Physical and in the interval since the performance of the History & Physical I have noted the following changes of clinical significance: no changes noted
[2024-03-22] MEDS: dexAMETHasone**PF** 10 MG/ML VIAL ONE (09:07)
[2024-03-22] MEDS ORDERED: SCOPOLAMINE 1 MG/72 HR TDSY PATCH TD ONE (10:03)
[2024-03-22] MEDS: ceFAZolin 2000MG 2,000 MG/15 ML SYR IV SCH (10:29)
[2024-03-22] MEDS: DEXAMETHASONE SOD INJ 4 MG/ML VIAL IV STA (10:33)
[2024-03-22] MEDS ORDERED: METOCLOPRAMIDE HCL INJ 5 MG/ML 2 ML VIAL ONE (10:44)
[2024-03-22] MEDS ORDERED: DEXAMETHASONE SOD INJ 4 MG/ML VIAL ONE (10:44)
[2024-03-22] MEDS ORDERED: ONDANSETRON INJ 2 MG/ML 2 ML VIAL ONE (10:44)
[2024-03-22] MEDS ORDERED: PROPOFOL IV EMULSION 10 MG/ML 20 ML VIAL IV ONE (11:04)
[2024-03-22] MEDS: ORTHO JOINT ANESTHETIC ONE (11:10)
[2024-03-22] MEDS: TRANEXAMIC ACID 1,000 MG **IV Intra-op IV SCH (11:26)
[2024-03-22] MEDS: ROPIV 0.5% 246mg, Ketorolac 30mg, EPINEPHrine 0.5mg in NSS INFIL SCH (12:01)
--- NOTE | 2024-03-22 12:18 | Operative Report ---
PG Post Operative Report Pre & Post Diagnosis Operation Date: 03/22/24 10:00 Pre-Op Diagnosis: Left Knee Osteoarthritis Post-Op Diagnosis: Left Knee Osteoarthritis I identified the patient and participated in the time-out.: Yes Procedure Operation Date: 03/22/24 10:00 Actual Procedures p Left Total Knee Arthroplasty(Left) - Jatinder Agee MD Surgeon Jatinder Agee MD Disease Intervention Specialist Patrick Azar PA-C Estimated Blood Loss 50 Findings Consistent with Post-Op Diagnosis Operative findings were advanced left knee DJD. She had extensive grade 4 [id number] disease and eburnation of the entire medial compartment. She had some grade 4 changes in the patellofemoral compartment and less severe in the lateral side. Moderate-sized joint effusion with fixed varus deformity to her knee. Specimens Left knee sent for pathology. Anesthesia Type Spinal MAC Complications none Disposition Accompanied Patient To Recovery: No Indications Patient is a 63-year-old female is had a long history of bilateral knee pain di [place]om[place] describes gotten worse over time. She underwent a right knee replacement years ago was done pretty well. Had some intermittent swelling but the workup was negative. She continued to be bothered by left knee pain and discomfort. She is now elected proceed with left total knee arthroplasty. Description of Procedure Operative implants consist of: 1. Biomet Vanguard size 67.5 left Posterior stabilized femoral component. 2. Biomet size 71 tibial tray. 3. 10 mm post stabilized polyethylene insert. 4. 31 x 8 all poly patella. The patient was taken the op room, identified, placed on the operating table in the supine position. All contact areas were appropriately padded. IV antibiotics tried by anesthesia team. Spinal anesthetic and adductor canal block had been provided in the holding area. A Velasquez catheter was placed in sterile fashion. A left thigh turn was then placed. Left lower extremities then prepped and draped in usual sterile fashion. The left leg was elevated and exsanguinated with use of an Esmarch and the tourniquet placed at 300 mmHg. An anterior approach left knee was then performed to longitudinal incision centered over the patella. Sharp dissection was Through subcutaneous tissue down the extensor mechanism. A medial parapatellar arthrotomy incision was made. Some subperiosteal dissection was carried out medially. The fat pad was resected from Neath patella tendon. Lateral patellofemoral ligament was released. Patella subluxated laterally and the knee was flexed. The osteophytes taken off distal femur. ACL PCL were then released from the distal femur the tibia subluxated anteriorly. The external treatment LYMErix then placed on the anterior face the tibia and adjusted 14 mm medially. The proximal tibial cut was made remove about a millimeter bone from the most efficient aspect medial tibial plateau. Some osteophytes were taken off medially and posterior medially. The tibia sized to a size 71. Attention drawn the femur. The distal femur examined the sharp drill. Intramedullary canal was suction. A left 5 degree valgus cutting guide was placed for the distal femoral cutting block was pinned in place. This femoral cut was made take an additional 3 mm of bone off distal femur. The femur was then sized to a size 67.5. The 8 cutting block was pinned parallel to the epicondylar axis which was 4 degrees of external rotation. The anterior cut, anterior chamfer, posterior cut, posterior chamfer cuts were made. The box cutting guide was placed and adjusted slightly laterally. The box cut was made. The knee was flexed. The remnants of the medial and lateral menisci were excised. The osteophytes taken off the posterior aspect of the femur. A trial femoral component was placed. The tibial tray was pinned Kathy external rotation and the drill and stem punch were used to create defect in the proximal tibia for the tibial tray. The knee was then trialed and the 10 mm insert fit most appropriately. Attention drawn the patella. The patella was cleaned of all soft tissue. Patella thickness measured 23 mm in thickness was cut down to 14. Was sized to a size 31 patella. The lug holes were drilled for 31 patella. The lateral osteophytes removed. Patella button was placed. Knee was taken through range of motion and the patella tracked nicely with no thumbs test. Attention drawn to place the permanent components. All trial components were removed. Bone plug was placed in the distal femur limit blood loss. A double batch Palacos G cement was mixed. A Biomet Vanguard size 67.5 left posterior stabilized femoral component, size 71 tibial tray, a 10 mm posterior Byce polyethylene insert, and a 31 x 8 all poly patella then cemented in place. The knee was brought out in full extension till cement hardened. Final cement check was then performed. The pericapsular tissues were injected with a total of 100 cc of Ortho mix. Patient did receive 1 g tranexamic acid. The tourniquet was then let down for final tourniquet time of 53 minutes. Hemostasis assured use electrocautery. The wounds once again irrigated. The extensor Metros then closed with combination 1 PDS suture and 1 Vicryl suture. Extensor Metros were checked found to be intact in the subcutaneous tissues then closed with 2 Dexon suture in a buried interrupted fashion skin was closed skin francisca. Leg was then cleaned and dried a sterile dressed with Xeroform, 4 fours, sterile cast padding, Bjorn bandage were applied. Patient then transferred to the recovery room in stable condition. The patient tolerated procedure well and there were no complications. Patrick Azar, my physician licensed physical therapy assistant, was present for the entire procedure. His assistance was essential and required for appropriate patient positioning, prepping and draping, surgical exposure, performing the technical details of the operation, placement the implants, closure of the wound, and placement of the sterile bandage. I attest to the content of the Intraoperative Record and any orders documented therein. Any exceptions are noted below.
--- NOTE | 2024-03-22 12:44 | XRay Report ---
XR knee LT 1 or 2V routine CLINICAL HISTORY: Surgical Post Op TECHNIQUE: 2 views of the left knee were obtained. Comparison: Comparison is made to the radiographs 04/29/2011 FINDINGS: Patient is status post total knee arthroplasty with expected postsurgical changes including soft tiss ue swelling and subcutaneous emphysema. No periarticular lucency or hardware fracture is seen. IMPRESSION: Expected postoperative appearance status post placement of total knee arthroplasty. ACT 112: Negative or not required by law. Electronically signed by: Lino Tomas M.D. 03/22/2024 12:42 PM
--- NOTE | 2024-03-22 13:17 | Anesthesiology Progress Note ---
Date of Service March 22, 2024 Anesthesia Post Procedure Vital Signs Vital Signs: Temp Pulse Resp BP Pulse Ox O2 Del Method O2 Flow Rate 03/22/24 13:05 36.5 C 83 16 120/71 96 Room Air 03/22/24 12:55 87 14 127/76 95 Room Air 03/22/24 12:45 83 13 115/67 95 Room Air 03/22/24 12:35 83 15 118/71 98 Oxymask 3 03/22/24 12:25 83 23 120/67 99 Oxymask 3 03/22/24 12:16 37 C 84 15 115/68 97 Oxymask 6 03/22/24 08:25 36.9 C 83 20 153/95 H 96 Room Air Pain Intensity Left Knee: Pain Intensity: 0 Transfer of Care Handoff Completed per policy Notes Mental Status: alert / awake / arousable Patient Amnestic to Procedure: Yes Nausea / Vomiting: adequately controlled Pain: adequately controlled Airway Patency, RR, SpO2: stable & adequate BP & HR: stable & adequate Hydration State: stable & adequate Anesthetic Complications: no major complications apparent
[2024-03-22] MEDS ORDERED: bisacodyL 10 MG SUPP PR PRN (15:16)
[2024-03-22] MEDS ORDERED: MAGNESIUM HYDROXIDE SUSP 30 ML UDC PO PRN (15:16)
[2024-03-22] MEDS ORDERED: diphenhydrAMINE Capsule 25 MG CAP PO PRN (15:16)
[2024-03-22] MEDS ORDERED: METOCLOPRAMIDE HCL INJ 5 MG/ML 2 ML VIAL IV PRN (15:16)
[2024-03-22] MEDS ORDERED: ALUMINUM/MAGNESIUM SUSP 30 ML UDC PO PRN (15:16)
[2024-03-22] MEDS ORDERED: oxyCODONE HCL IR 5 MG TAB (IMMEDIATE RELEASE) PO PRN (15:16)
[2024-03-22] MEDS ORDERED: HYDROmorphone INJ 0.5 MG/0.5 ML SYR IV PRN (15:16)
[2024-03-22] MEDS ORDERED: ONDANSETRON INJ 2 MG/ML 2 ML VIAL IV PRN (15:16)
[2024-03-22] MEDS ORDERED: NALOXONE HCL 0.4 MG/1 ML VIAL/CARP IV PRN (15:16)
[2024-03-22] MEDS: FAMOTIDINE/PF 20 MG/2 ML VIAL IV ONE (15:27)
[2024-03-22] MEDS: SODIUM CHLORIDE 0.9% 1,000 ML IV SCH (16:08)
[2024-03-22] MEDS: CALCIUM 600MG + VIT D 400 IU TAB PO SCH (16:26)
[2024-03-22] MEDS: ASCORBIC ACID 500 MG TAB PO SCH (16:27)
[2024-03-22] MEDS: TRANEXAMIC ACID / 0.7% NACL 1,000 MG/100 ML BAG IV SCH (17:33)
[2024-03-22] MEDS: ceFAZolin 1000MG 1,000 MG/7.5 ML SYR IV SCH (17:34)
[2024-03-22] MEDS: DOCUSATE SODIUM 100 MG CAP PO SCH (20:21)
[2024-03-22] MEDS: KETOROLAC 30 MG/ML VIAL IV SCH (20:21)
[2024-03-22] MEDS: ASPIRIN 81 MG ECTAB PO SCH (20:21)
[2024-03-22] MEDS: SENNA 8.6 MG TAB PO SCH (20:21)
[2024-03-22] MEDS ORDERED: SENNA 8.6 MG TAB PO SCH (21:00)
[2024-03-23 06:29] LABS: Hemoglobin 12.2 g/dl (12.0-16.0); Mean Corpuscular Hemoglobin 30.3 pg (25.0-34.0); Mean Corpuscular Hgb Conc 33.9 g/dL (32.0-36.0); Mean Corpuscular Volume 89.3 fL (80.0-100.0); Mean Platelet Volume 10.1 fL (9.4-12.4); Platelet Count 248 K/uL (130-400); RDW Coefficient of Variation 12.7 % (11.5-14.5); RDW Standard Deviation 41.6 fL (36.4-46.3); Red Blood Count 4.03 M/uL (4.20-5.40); White Blood Count 13.07 K/ul (4.8-10.8)
[2024-03-23 07:07] VITALS: RESP 16; TEMP 98.2; O2SAT 96
[2024-03-23 07:09] LABS: BUN Creatinine Ratio 13.1 (10-20); Calcium 9.6 mg/dl (8.6-10.3); Creatinine Clr Calc Pharmacy 71.2 ml/min; Potassium 4.1 mmol/L (3.5-5.1)
[2024-03-23] MEDS ORDERED: TURMERIC ROOT EXTRACT 500 MG PO SCH (09:00)
[2024-03-23] MEDS ORDERED: VITAMIN C PO SCH (09:00)
[2024-03-23] MEDS ORDERED: NON-FORMULARY MEDICATION (Multivitamin capsule) PO SCH (09:00)
--- NOTE | 2024-03-23 09:16 | Orthopedic Progress Note ---
Date of Service March 23, 2024 Assessment & Plan (1) Status post left knee replacement: Plan: 63-year-old female postop day 1 from left knee replacement doing pretty well. The bloody drainage is not anything unusual. She is neurologically intact. Pains been controlled. Plan: 1. DVT prophylaxis including thigh-high teds, SCDs, aspirin twice a day. 2. PT/OT. She can fully weight-bear as tolerated. Left total knee protocol. 3. Pain control doing okay with current pain regimen. 4. Dressing management. Will change her Bjorn bandage today. This bloody drainage is not anything unusual at this stage. 5. Disposition plan to discharge to home with some home health if she does okay in therapy today. Admission and Anticipated Discharge Date Admission Date: March 22, 2024 Subjective 63-year-old female postop day 1 from left knee replacement. She is doing pretty well. Pains been controlled. She has had some bloody drainage and she is concerned about that. No chest pain or shortness of breath. Not not feeling dizzy or lightheaded. Physical Exam Physical Exam: Physical examination was a pleasant middle-age female. She is lying in bed looks comfortable. As she is clearly worried about the bloody drainage. Examination left leg reveals the dressing to be in place. She does have some bloody drainage on the front of the dressing. She can do a straight leg raise. She can dorsiflex and plantarflex her foot appropriately. She got brisk refill. Respiratory: normal respiratory effort, lungs clear to auscultation Cardiovascular: RRR, no murmur, no edema Gastrointestinal (Abdomen): normal bowel sounds, soft, nontender, no hepatosplenomegaly Results & Data Vital Signs (Past 12 Hours) Vital Signs Temp Pulse Resp BP BP Pulse Ox O2 Del Method 03/23/24 07:06 36.8 C 70 16 122/75 96 Room Air 03/23/24 03:00 36.5 C 86 18 103/67 95 Room Air 03/22/24 22:38 36.9 C 80 20 129/63 96 Room Air Laboratory Results Hemoglobin is 12.2. Hematocrit is 36.0. Electrolytes are stable.
[2024-03-23] MEDS: dexAMETHasone 10 MG in SYRINGE 0 ML IV SCH (09:21)
[2024-03-23] MEDS: MULTIVITAMIN TAB PO SCH (09:22)
[2024-03-23 11:49] VITALS: BP 103/67; PULSE 92
== END 2024-03-23 12:46 | disposition home health service (06) ==
LOC: ASU 08:00 → 3W 08:00